=== PATIENT | male | born 1950 | race Caucasian/White ===

== ENCOUNTER 2018-05-18 07:30 | Inpatient (IN) ==
[2018-05-15 13:48] LABS: Appearance,Urine CLEAR; Bilirubin,Urine NEG (NEG); Color,Urine YELLOW; Glucose,Urine (UA) 50 mg/dL (NEG); Leukocyte Esterase,Urine NEG /uL (NEG); Protein,Urine NEG (NEG); Specific Gravity,Urine 1.029 (1.000-1.035); Urine Blood NEG mg/dL (<0.03)
[2018-05-15 14:34] LABS: Basophils # (Auto) 0 K/mcL (0.0-0.3); Basophils % (Auto) 0.3 % (0.0-2.0); Eosinophils # (Auto) 0.1 K/mcL (0.0-0.7); Eosinophils % (Auto) 1.3 % (0.0-7.0); Granulocytes % (Auto) 69.2 % (38.0-78.0); Lymphocytes # (Auto) 2.1 K/mcL (1.5-4.8); Mean Cell Volume 83.2 fL (80.0-100.0); Mean Corpuscular HGB Conc 33.7 g/dL (31.0-36.0); Monocytes # (Auto) 0.8 K/mcL (0.1-0.9); Monocytes % (Auto) 8.2 % (1.0-12.0); Platelet Count 187 K/mcL (140-440); RBC 5.41 M/mcL (4.50-5.90); Red Cell Distribution Width 14.5 % (11.5-14.5)
[2018-05-15 15:25] LABS: Blood Urea Nitrogen 25 mg/dl (8-23)
[~2018-05-18 07:30] MED LIST: 0.9 % SODIUM CHLORIDE 9 ML, KETOROLAC 30 MG, ROPIVACAINE HCL/PF 49.5 ML, EPINEPHrine 0.... IJ SCH; ceFAZolin 1 GM VIAL IV SCH
[2018-05-18] MEDS ORDERED: DEXAMETHASONE 10 MG/ML VIAL IV ONE (16:05)
[2018-05-18] MEDS ORDERED: MIDAZOLAM 2 MG/2 ML VIAL IV ONE (16:05)
[2018-05-18] MEDS ORDERED: ONDANSETRON 4 MG/2 ML VIAL IV ONE (16:05)
[2018-05-18] MEDS ORDERED: ROPIVACAINE HCL/PF 20 ML VIAL IJ ONE (16:05)
[2018-05-18] MEDS ORDERED: PHENYLEPHRINE 10 MG/ML VIAL IV ONE (16:05)
[2018-05-18] MEDS ORDERED: TRANEXAMIC ACID 1,000 MG/10 ML VIAL IV ONE ×3 (16:05→18:06)
[2018-05-18] MEDS ORDERED: LIDOCAINE HCL/PF 100 MG/5 ML SYRINGE IV ONE (16:05)
[2018-05-18] MEDS ORDERED: PROPOFOL 200 MG/20 ML VIAL IV ONE (16:05)
[2018-05-18] MEDS ORDERED: KETAMINE 100 MG/ML ML IV ONE (16:05)
[2018-05-18] MEDS ORDERED: ePHEDrine 50 MG/ML AMPUL IV ONE (16:05)
[2018-05-18] MEDS ORDERED: GLYCOPYRROLATE 0.2 MG/ML VIAL IV ONE (16:05)
[2018-05-18] MEDS ORDERED: fentaNYL 100 MCG/2 ML VIAL IV ONE (16:32)
[2018-05-18] MEDS ORDERED: GENTAMICIN SULFATE 800 MG/20 ML VIAL IR ONE (16:53)
[2018-05-18] MEDS ORDERED: fentaNYL 100 MCG/2 ML VIAL IV PRN (17:30)
[2018-05-18] MEDS ORDERED: LACTATED RINGERS 1,000 ML IV SCH (17:30)
[2018-05-18] MEDS ORDERED: IPRATROPIUM/ALBUTEROL 3 ML AMPUL.NEB NEB PRN (17:30)
[2018-05-18] MEDS ORDERED: BENZOCAINE/MENTHOL 1 LOZENGE PO PRN ×2 (17:30→18:06)
[2018-05-18] MEDS ORDERED: MEPERIDINE 25 MG/ML SYRINGE IV PRN (17:30)
[2018-05-18] MEDS ORDERED: METHOCARBAMOL 1,000 MG/10 ML VIAL IV PRN (17:30)
[2018-05-18] MEDS ORDERED: LACTATED RINGERS 250 ML IV PRN (17:30)
[2018-05-18] MEDS ORDERED: ACETAMINOPHEN 1,000 MG/100 ML BOTTLE IV ONE (17:30)
[2018-05-18] MEDS ORDERED: NALOXONE HCL 0.4 MG/ML VIAL IV PRN (17:30)
[2018-05-18] MEDS ORDERED: ONDANSETRON 4 MG/2 ML VIAL IV PRN ×2 (17:30→18:06)
[2018-05-18] MEDS ORDERED: PROMETHAZINE 25 MG/ML VIAL IV PRN (17:30)
[2018-05-18] MEDS ORDERED: FLUMAZENIL 0.1 MG/ML ML IV PRN (17:30)
[2018-05-18] MEDS ORDERED: MAGNESIUM HYDROXIDE 30 ML ORAL.SUSP PO PRN (18:06)
[2018-05-18] MEDS ORDERED: FLEETS ADULT ENEMA PR PRN (18:06)
[2018-05-18] MEDS ORDERED: BISACODYL 10 MG SUPP.RECT PR PRN (18:06)
[2018-05-18] MEDS ORDERED: POLYETHYLENE GLYCOL 3350 17 GM PACKET PO PRN (18:06)
[2018-05-18] MEDS ORDERED: CALCIUM CARBONATE 500 MG TAB.CHEW PO PRN (18:11)
--- NOTE | 2018-05-18 18:14 | Orthopedic Procedure Note ---
Date of procedure: Note initiated : 05/18/18 at 6:13 pm Service Date, if different from initiated Date: [] Pre-op diagnosis: DJD left knee Post-op diagnosis: same Procedure: Robotic TKR (CR) left Anesthesia: GETA Surgeon: Wolfgang Juárez Presser First: Velasquez Martínez Estimated blood loss: 100 Pathology: none sent Condition: stable Disposition: PACU
--- NOTE | 2018-05-18 19:18 | XRay Report ---
CLINICAL INFORMATION: Knee replacement COMPARISON: None. FINDINGS: Total knee prosthesis is anatomically aligned. No osseous normality. Periarticular soft tissue swelling noted IMPRESSION: Negative Interpreted and Authenticated by: Darell Troy 05/18/18
[2018-05-18] MEDS: 0.9 % SODIUM CHLORIDE 1,000 ML IV SCH (19:40)
[2018-05-18] MEDS ORDERED: ASPIRIN 81 MG TAB.CHEW PO SCH (21:00)
[2018-05-18] MEDS: ASPIRIN 325 MG ENTERIC COATED TABLET PO SCH (22:04)
[2018-05-18] MEDS: DOCUSATE SODIUM 100 MG CAPSULE PO SCH (22:04)
[2018-05-18] MEDS: diphenhydrAMINE 25 MG CAPSULE PO SCH (22:04)
[2018-05-18] MEDS: LOSARTAN 50 MG TABLET PO SCH (22:04)
[2018-05-18] MEDS: TAMSULOSIN 0.4 MG CAPSULE PO SCH (22:05)
[2018-05-18] MEDS: CALCITRIOL 0.25 MCG CAPSULE PO SCH (22:06)
[2018-05-18] MEDS: PRAZOSIN 1 MG CAPSULE PO SCH (22:06)
[2018-05-18] MEDS: SERTRALINE 50 MG TABLET PO SCH (22:07)
[2018-05-18] MEDS: 0.9 % SODIUM CHLORIDE 10 ML SYRINGE IV SCH (22:07)
[2018-05-18] MEDS: SENNOSIDES 1 TABLET PO SCH (22:07)
[2018-05-19] MEDS: ceFAZolin 1 GM VIAL IV SCH ×2 (00:03→06:56)
[2018-05-19] MEDS: KETOROLAC 15 MG/ML VIAL IV SCH ×4 (00:16→18:05)
[2018-05-19] MEDS: INSULIN NPH, HUMAN 1 UNIT/0.01 ML UNIT SQ SCH ×2 (00:29→21:48)
[2018-05-19] MEDS: 0.9 % SODIUM CHLORIDE 1,000 ML IV SCH ×3 (05:13→23:55)
[2018-05-19] MEDS: 0.9 % SODIUM CHLORIDE 10 ML SYRINGE IV SCH ×3 (05:13→20:26)
[2018-05-19] MEDS: OMEPRAZOLE 20 MG CAPSULE PO SCH (06:54)
[2018-05-19] MEDS: LEVOTHYROXINE 125 MCG TABLET PO SCH (06:54)
--- NOTE | 2018-05-19 07:51 | Orthopedic Progress Note ---
Subjective Patient information: Note initiated : 05/19/18 at 7:49 am Service Date, if different from initiated Date: [] Patient: David Benitez 68 y/o M admitted on 05/18/18 for Left Total Knee Arthroplasty. Chief Complaint: [] Interval history: Patient is doing well and he is not having any issues at this time. He is participating in PT and pain is well controlled. He denies any CP, SOB, nausea, vomitting, or any other. Objective Vital signs: Vital Signs Temp Pulse Pulse Resp BP BP Pulse Ox 05/19/18 07:01 88 16 93 05/19/18 07:00 97.6 F 88 16 128/74 93 05/19/18 04:00 97.7 F 92 H 20 114/69 93 05/19/18 00:00 97.9 F 100 H 18 120/72 93 05/18/18 22:20 98.8 F 93 H 18 144/76 92 05/18/18 21:24 91 H 146/78 94 05/18/18 20:54 93 H 136/75 93 05/18/18 20:24 94 H 139/74 92 05/18/18 20:09 93 H 140/72 92 05/18/18 19:54 95 H 138/72 91 05/18/18 19:39 98 H 138/72 91 05/18/18 19:30 93 05/18/18 19:24 101 H 148/74 93 05/18/18 19:20 103 H 16 137/77 96 05/18/18 19:07 98 F 107 H 16 140/70 94 05/18/18 18:57 108 H 18 121/64 96 05/18/18 18:52 107 H 140/69 96 05/18/18 18:47 18 130/63 98 05/18/18 18:42 107 H 16 124/58 96 05/18/18 18:37 97.9 F 106 H 20 127/60 93 05/18/18 12:00 98.4 F 68 16 140/80 95 05/18/18 08:00 97.2 F 69 16 122/77 93 Intake and Output 05/18/18 05/19/18 05/19/18 21:59 05:59 13:59 Intake Total 1900 / 1900 1550 / 1550 Output Total 200 / 200 925 / 925 Balance 1700 / 1700 625 / 625 Intake: IV 100 / 100 1000 / 1000 Sodium Chloride 0.9% 1,000 ml @ 1000 / 1000 100 mls/hr IV .Q10H ANDRE Rx#: [id number] Oral 550 / 550 IV - Manual Only 1800 / 1800 Output: Void Amount 925 / 925 Estimated Blood Loss 200 / 200 Other: Meal 1 bowl soup Percent of Meal Consumed 100% Feeding Ability Independent Urine Appearance Clear Urine Color Dark Yellow Weight 218 lb Intake & Output: Intake & Output 05/18/18 05/19/18 05/19/18 21:59 05:59 13:59 Intake Total 1900 / 1900 1550 / 1550 Output Total 200 / 200 925 / 925 Balance 1700 / 1700 625 / 625 Weight 218 lb Intake: IV 100 / 100 1000 / 1000 Sodium Chloride 0.9% 1,000 ml @ 1000 / 1000 100 mls/hr IV .Q10H ANDRE Rx#: [id number] Oral 550 / 550 IV - Manual Only 1800 / 1800 Output: Void Amount 925 / 925 Estimated Blood Loss 200 / 200 Other: Meal 1 bowl soup Percent of Meal Consumed 100% Feeding Ability Independent Urine Appearance Clear Urine Color Dark Yellow Incision clean and dry: Yes Dressing: Yes clean, Yes dry, Yes intact Weight bearing status: full Range of motion: 0-90 Neurological exam IM: Yes neurovascular intact Extremities exam IM: No calf tenderness, Yes Foot pink and warm, Yes neurovascular intact - Labs CBC & BMP: 05/19/18 05:32 05/15/18 12:38 Labs: 05/19/18 05/15/18 05:32 12:38 Hgb 15.2 Hct 41.0 45.0 Assessment and Plan (1) Status post total left knee replacement Patient is doing well and will discharge on Tuesday to a SNF on oral pain meds and ASA 325 po BID for dvt prophylaxis continue PT Follow up with Velasquez in 2 weeks Status: Acute
--- NOTE | 2018-05-19 08:41 | Operative Note ---
DATE OF OPERATION: 05/18/2018 PREOPERATIVE DIAGNOSIS: Degenerative joint disease of the left knee. POSTOPERATIVE DIAGNOSIS: Degenerative joint disease of the left knee. OPERATION: PHUONG total knee arthroplasty with a triathlon knee. SURGEON: Wolfgang Juárez MD CERTIFIED RETINAL ANGIOGRAPHER: Velasquez Martínez PA-C ANESTHESIA: General. TOURNIQUET TIME: 77 minutes. ESTIMATED BLOOD LOSS: 100 mL SUMMARY OF PROCEDURE: General anesthesia was attained. The left leg was prepped and draped. Thigh level tourniquet was put up. Two parallel holes were drilled into the femur above the surgical site and the anterior midline. We array for PHUONG was then placed. Similarly, two stab incisions were made in the distal tibia. Two pins were placed. The microarray was placed here as well. Anatomic confirmation was then done. We then exposed the knee. A midline incision was made from the quadriceps to the tibial tubercle. A mid vastus ___approach was used. Incision was taken down to the quadriceps and medial retinaculum. A mid vastus approach was made and the quadriceps split for about 1 cm below the mid vastus approach and then the medial retinaculum also was released. A medial release was done. The anterior aspect of the menisci was resected. The femur could be well visualized at this point. Using the probe we then did anatomic confirmation on both the femur and the tibia. The PHUONG system was then used to adjust the locate the anatomic sized medial and lateral malleoli femur and tibia. The knee was then balanced. After balancing with the PHUONG system we then made the femoral cuts and tibial cut. The robot was removed at this point. The trials were done and the tibia was prepared using the triathlon guide system and the femoral position was adjusted slightly laterally as well. The components were cemented in. The trial was done and excellent combination of full range of motion and stability medially and laterally in flexion and extension was with a 9 mm insert. The patella was everted. A measured resection technique was used to resect 10 mm of patella and leave 14 mm intact. The patella sized to a 32. The peg holes were drilled. All bony surfaces were irrigated. The components were cemented in. Excess cement was removed. The tourniquet was let down. All bleeding points were coagulated. The quadriceps and medial retinacular split were closed in two layers using buried 0 FiberWire and a running locking Maxon 0 in size. The subcutaneous tissue was closed with buried interrupted 2-0 Monocryl and the skin was closed with Dermabond. The array sites size 4 closed with simple sutures of 2-0 nylon. Throughout the procedure, the knee was injected with multimodal solution from the pharmacy for postoperative analgesia. The patient awoke without difficulty. She was taken to the recovery room in stable condition. The sponge and needle count was correct. TJF:[id number] Job ID: [id number] Doc ID: [id number] Wolfgang Juárez MD
[2018-05-19] MEDS: ASPIRIN 325 MG ENTERIC COATED TABLET PO SCH ×2 (08:58→21:48)
[2018-05-19] MEDS: DOCUSATE SODIUM 100 MG CAPSULE PO SCH ×2 (08:58→21:47)
[2018-05-19] MEDS: ACETAMINOPHEN 500 MG TABLET PO PRN ×3 (08:58→21:52)
[2018-05-19] MEDS: CALCIUM (OYSTER SHELL) 500 MG TABLET PO SCH (08:58)
[2018-05-19] MEDS: METHOCARBAMOL 750 MG TABLET PO PRN ×2 (12:31→18:06)
[2018-05-19] MEDS: diphenhydrAMINE 25 MG CAPSULE PO SCH (21:47)
[2018-05-19] MEDS: LOSARTAN 50 MG TABLET PO SCH (21:47)
[2018-05-19] MEDS: TAMSULOSIN 0.4 MG CAPSULE PO SCH (21:48)
[2018-05-19] MEDS: PRAZOSIN 1 MG CAPSULE PO SCH (21:49)
[2018-05-19] MEDS: CALCITRIOL 0.25 MCG CAPSULE PO SCH (21:49)
[2018-05-19] MEDS: SENNOSIDES 1 TABLET PO SCH (21:50)
[2018-05-19] MEDS: SERTRALINE 50 MG TABLET PO SCH (21:50)
[2018-05-20] MEDS: KETOROLAC 15 MG/ML VIAL IV SCH ×4 (00:48→16:57)
[2018-05-20] MEDS: METHOCARBAMOL 750 MG TABLET PO PRN (04:58)
[2018-05-20] MEDS: 0.9 % SODIUM CHLORIDE 10 ML SYRINGE IV SCH ×3 (04:58→20:33)
[2018-05-20] MEDS: GABAPENTIN 300 MG CAPSULE PO PRN (04:58)
[2018-05-20] MEDS: OMEPRAZOLE 20 MG CAPSULE PO SCH (07:54)
[2018-05-20] MEDS: LEVOTHYROXINE 125 MCG TABLET PO SCH (07:55)
[2018-05-20] MEDS: ASPIRIN 325 MG ENTERIC COATED TABLET PO SCH ×2 (09:57→20:31)
[2018-05-20] MEDS: CALCIUM (OYSTER SHELL) 500 MG TABLET PO SCH (09:57)
[2018-05-20] MEDS: DOCUSATE SODIUM 100 MG CAPSULE PO SCH ×2 (09:57→20:31)
[2018-05-20] MEDS: 0.9 % SODIUM CHLORIDE 1,000 ML IV SCH ×2 (09:59→20:19)
--- NOTE | 2018-05-20 12:54 | Orthopedic Progress Note ---
Orthopedics - Auxillary Note - Subjective Patient Information: Note initiated : 05/20/18 at 12:52 pm Service Date, if different from initiated Date: [] Patient: David Benitez 68 y/o M admitted on 05/18/18 for Left Total Knee Arthroplasty. Chief Complaint: Mild to moderate pain bandages c/d/i nvi-distal Vital Signs Temp Pulse Resp BP Pulse Ox 05/20/18 11:42 98.9 F 18 139/74 90 05/20/18 07:06 97.8 F 16 124/67 93 05/20/18 04:00 98.1 F 80 18 111/67 93 05/19/18 23:57 98 F 90 20 113/64 91 05/19/18 19:51 97.5 F 68 16 118/68 93 05/19/18 15:46 98.0 F 74 20 158/76 96 Intake and Output 05/19/18 05/20/18 05/20/18 21:59 05:59 13:59 Intake Total 240 / 240 200 / 200 600 / 600 Output Total 750 / 750 725 / 725 Balance -510 / -510 -525 / -525 600 / 600 Intake: Oral 240 / 240 200 / 200 600 / 600 Output: Void Amount 750 / 750 725 / 725 Other: Meal Dinner Breakfast Percent of Meal Consumed 100% 100% Feeding Ability Independent Urine Appearance Clear Urine Color Dark Yellow Weight 214 lb 8 oz will d/c IV pain meds and Tylenol, Add Fords 10/325mg 1-2 tabs PO q4-6 prn pain. pt also requesting a sleep aid will try Melatonin. He states he takes something similar at home. Mobilize with PT discharge to SNF Tuesday
[2018-05-20] MEDS: SERTRALINE 50 MG TABLET PO SCH (20:30)
[2018-05-20] MEDS: SENNOSIDES 1 TABLET PO SCH (20:30)
[2018-05-20] MEDS: TAMSULOSIN 0.4 MG CAPSULE PO SCH (20:30)
[2018-05-20] MEDS: LOSARTAN 50 MG TABLET PO SCH (20:30)
[2018-05-20] MEDS: PRAZOSIN 1 MG CAPSULE PO SCH (20:31)
[2018-05-20] MEDS: CALCITRIOL 0.25 MCG CAPSULE PO SCH (20:31)
[2018-05-20] MEDS: INSULIN NPH, HUMAN 1 UNIT/0.01 ML UNIT SQ SCH (20:32)
[2018-05-20] MEDS: HYDROcodone/APAP 10/325MG TABLET PO PRN (20:33)
[2018-05-21] MEDS: METHOCARBAMOL 750 MG TABLET PO PRN ×2 (00:25→14:46)
[2018-05-21] MEDS: diphenhydrAMINE 25 MG CAPSULE PO PRN ×2 (00:25→22:46)
[2018-05-21] MEDS: HYDROcodone/APAP 10/325MG TABLET PO PRN ×4 (00:27→21:48)
[2018-05-21] MEDS: 0.9 % SODIUM CHLORIDE 10 ML SYRINGE IV SCH ×3 (05:16→22:47)
[2018-05-21] MEDS: 0.9 % SODIUM CHLORIDE 1,000 ML IV SCH ×2 (05:16→14:14)
[2018-05-21] MEDS: CALCIUM (OYSTER SHELL) 500 MG TABLET PO SCH (08:07)
[2018-05-21] MEDS: OMEPRAZOLE 20 MG CAPSULE PO SCH (08:07)
[2018-05-21] MEDS: DOCUSATE SODIUM 100 MG CAPSULE PO SCH ×2 (08:08→21:45)
[2018-05-21] MEDS: ASPIRIN 325 MG ENTERIC COATED TABLET PO SCH ×2 (08:08→21:46)
[2018-05-21] MEDS: LEVOTHYROXINE 125 MCG TABLET PO SCH (08:08)
[2018-05-21] MEDS ORDERED: ERGOCALCIFEROL (VITAMIN D2) 50,000 UNIT CAPSULE PO SCH (09:00)
--- NOTE | 2018-05-21 11:36 | Orthopedic Progress Note ---
Subjective Patient information: Note initiated : 05/21/18 at 11:35 am Service Date, if different from initiated Date: [] Patient: David Benitez 68 y/o M admitted on 05/18/18 for Left Total Knee Arthroplasty. Chief Complaint: [] Interval history: doing well. sore but no complaints Objective Vital signs: Vital Signs Temp Pulse Pulse Resp BP Pulse Ox 05/21/18 10:00 92 H 05/21/18 08:00 92 H 05/21/18 07:24 98.1 F 18 158/82 94 05/21/18 04:00 98.1 F 72 16 150/74 94 05/21/18 00:25 97.5 F 79 16 156/77 94 05/20/18 22:00 79 05/20/18 20:00 98.2 F 79 18 162/81 93 05/20/18 15:45 97.7 F 18 156/78 92 05/20/18 11:42 98.9 F 18 139/74 90 Intake and Output 05/20/18 05/21/18 05/21/18 21:59 05:59 13:59 Intake Total 800 / 800 800 / 800 Output Total 600 / 600 875 / 875 Balance 200 / 200 -875 / -875 800 / 800 Intake: Oral 800 / 800 800 / 800 Output: Void Amount 600 / 600 875 / 875 Other: Meal Dinner Breakfast Percent of Meal Consumed 100% 100% Feeding Ability Independent Independent Urine Appearance Clear Urine Color Bright Yellow Urine Odor Normal Weight 216 lb 8 oz Intake & Output: Intake & Output 05/20/18 05/21/18 05/21/18 21:59 05:59 13:59 Intake Total 800 / 800 800 / 800 Output Total 600 / 600 875 / 875 Balance 200 / 200 -875 / -875 800 / 800 Weight 216 lb 8 oz Intake: Oral 800 / 800 800 / 800 Output: Void Amount 600 / 600 875 / 875 Other: Meal Dinner Breakfast Percent of Meal Consumed 100% 100% Feeding Ability Independent Independent Urine Appearance Clear Urine Color Bright Yellow Urine Odor Normal Incision: Yes healing Incision clean and dry: Yes Dressing: Yes clean, Yes dry, Yes intact Weight bearing status: full Neurological exam IM: Yes abnormal gait, Yes alert, Yes oriented X3, Yes motor sensory intact, Yes neurovascular intact Extremities exam IM: No calf tenderness, Yes Foot pink and warm, Yes neurovascular intact - Labs CBC & BMP: 05/19/18 05:32 05/15/18 12:38 Labs: 05/19/18 05/15/18 05:32 12:38 Hgb 15.2 Hct 41.0 45.0 Assessment and Plan (1) Status post total left knee replacement pod 2 s/p tka pain control dvt prophylaxis dc planning - rehab tomorrow Status: Acute
--- NOTE | 2018-05-21 11:37 | Discharge Summary ---
Ortho Discharge - TKA - Patient Instructions Diet: Regular Diet Activity: activity as tolerated, weight bearing as tolerated Total Knee Protocol: For Total Knee: Start ROM DESEAN with stationary bike or rocking chair. Work on gaining full extension of knee. Posterior dislocation precautions provided. Hip abductor strengthening and gait training instructions provided. Apply Cryocuff as instructed. Dressing Care: May shower in 2 days - Problem Maintenance (1) Status post total left knee replacement Status: Acute - Follow Up Plan Follow Up Appointments: Velasquez Martínez PA-C [Physician Youth Development Specialist] - 05/31/18 11:20 am Disposition: Xfer SNF Prognosis: Good Rehab Potential: Good I certify that the patient requires SNF services: Yes Overall status at discharge: patient is progressing back to baseline
[2018-05-21] MEDS: SENNOSIDES 1 TABLET PO SCH (21:45)
[2018-05-21] MEDS: CALCITRIOL 0.25 MCG CAPSULE PO SCH (21:45)
[2018-05-21] MEDS: PRAZOSIN 1 MG CAPSULE PO SCH (21:46)
[2018-05-21] MEDS: SERTRALINE 50 MG TABLET PO SCH (21:46)
[2018-05-21] MEDS: LOSARTAN 50 MG TABLET PO SCH (21:46)
[2018-05-21] MEDS: TAMSULOSIN 0.4 MG CAPSULE PO SCH (21:46)
[2018-05-21] MEDS: GABAPENTIN 300 MG CAPSULE PO PRN (21:49)
[2018-05-21] MEDS: INSULIN NPH, HUMAN 1 UNIT/0.01 ML UNIT SQ SCH (21:52)
[2018-05-22] MEDS: HYDROcodone/APAP 10/325MG TABLET PO PRN ×2 (00:47→07:58)
[2018-05-22] MEDS: diphenhydrAMINE 25 MG CAPSULE PO PRN (00:55)
[2018-05-22] MEDS: 0.9 % SODIUM CHLORIDE 1,000 ML IV SCH (02:49)
[2018-05-22] MEDS: OMEPRAZOLE 20 MG CAPSULE PO SCH (07:54)
[2018-05-22] MEDS: LEVOTHYROXINE 125 MCG TABLET PO SCH (07:55)
[2018-05-22] MEDS: ASPIRIN 325 MG ENTERIC COATED TABLET PO SCH (10:00)
[2018-05-22] MEDS: DOCUSATE SODIUM 100 MG CAPSULE PO SCH (10:00)
[2018-05-22] MEDS: CALCIUM (OYSTER SHELL) 500 MG TABLET PO SCH (10:00)
[2018-05-22] MEDS: 0.9 % SODIUM CHLORIDE 10 ML SYRINGE IV SCH (10:01)
== END 2018-05-22 13:04 | DRG 470 ==
LOC: MEDSUR 07:40
PROVIDERS: ADMIT Orthopaedic Surgery Foot and Ankle Surgery; ATTEND Orthopaedic Surgery Foot and Ankle Surgery